=== PATIENT | female | born 1945 | race Caucasian/White ===

== ENCOUNTER 2017-04-07 06:28 | Day surgery (SDC) | payer MEDICARE, OTHER ==
[2017-04-07] MEDS ORDERED: Lidocaine 1% with EPINEPHrine 1:100,000 50 ML MDV ONE (06:44)
[2017-04-07] MEDS ORDERED: Bacitracin Oint 1 GM U/D Packet ONE (06:44)
[2017-04-07] MEDS ORDERED: Sodium Chloride 0.9% 1,000 ML IV SCH (07:00)
[2017-04-07] MEDS ORDERED: fentaNYL 100 MCG/2 ML SDV ONE (07:20)
[2017-04-07] MEDS ORDERED: Midazolam 1 MG/ML 2 ML SDV ONE (07:20)
[2017-04-07] MEDS ORDERED: Propofol 200 MG/20 ML SDV ONE (07:20)
[2017-04-07] MEDS ORDERED: Lidocaine 0.5% 50 ML SDV ONE (07:21)
[2017-04-07] MEDS ORDERED: ceFAZolin 2 GM in Premix Bag 1 BAG IV ONE ×2 (07:30)
[2017-04-07] MEDS ORDERED: Ketorolac 60 MG/2 ML SDV ONE (08:29)
[2017-04-07] MEDS ORDERED: fentaNYL 100 MCG/2 ML SDV IVPUSH PRN (09:21)
[2017-04-07] MEDS ORDERED: Acetaminophen/HYDROcodone 325-5 MG Tab PO ONE (10:40)
--- NOTE | 2017-04-08 08:18 | OR ---
DATE OF PROCEDURE: 04/07/2017 PROCEDURE: Carpal tunnel release, right. COMPLICATIONS: None. 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 ANESTHESIA: [place] block. PREOPERATIVE DIAGNOSIS: Carpal tunnel syndrome. POSTOPERATIVE DIAGNOSIS: Carpal tunnel syndrome. RISKS: Risks, benefits, alternatives, and limitations including, but not limited to infection, bleeding, and injury to nerves, such as the median nerve or other cutaneous nerves, were all explained to the patient, and she wished to proceed. PROCEDURE IN DETAIL: The patient was placed in a supine position. The right hand and arm were prepped and draped. Lead Hand was used to facilitate positioning, which included a very slightly flexed position to decrease median nerve injury potential. An incision was made approximately 1.5 cm, which would be slightly enlarged during this procedure, due to thickness of the carpal tunnel. This was slightly ulnar to the midline and more aligned with the ring finger. This was carried down with electrocautery through the subcutaneous tissues. [place] was used to bluntly dissect. Very small cutaneous branches were encountered, as is typical. These were preserved and not dissected. Once the flexor retinaculum was encountered, a 15 blade was used to create a very small defect in this, allowing this to be transected. The majority of the transection was performed with blunt dissection with spreading technique in combination with scissors. Self-retaining and radiology physician assistant-driven retraction were also used to facilitate optimal visualization, and at no time was the scissors "slid" blindly. In addition, a groove director was also used to protect the median nerve, which was identified away from the incision area. Once dissection on the distal aspect was complete, the surgeon's position was moved to the end of the table, allowing proximal visualization at a better angle of attack. The flexor retinaculum was checked proximally and distally for complete transection, which was noted. The median nerve was then identified again and inspected without abnormality. Subcutaneous tissues were gently approximated with 3-0 Vicryl, and the skin was closed with 4-0 Prolene. Fluffs and bulky type dressings were applied. The patient tolerated the procedure well. Ricco Dover MD /[id number]
== END 2017-04-07 11:05 | disposition home or self-care (01) ==
LOC: JP.SDS 06:28 → MERGE 10:00 → JP.SDS 11:05
PROVIDERS: ATTEND Surgery
DX: G56.01 Carpal tunnel syndrome, right upper limb (principal); J45.909 Unspecified asthma, uncomplicated; Z87.891 Personal history of nicotine dependence; Z98.84 Bariatric surgery status; Z79.899 Other long term (current) drug therapy; Z91.040 Latex allergy status; Z88.8 Allergy status to other drugs, medicaments and biological substances
CPT/HCPCS: 64721; A9270; J0690; J1885; J2250; J2704; J3010; J7040

== ENCOUNTER 2017-05-14 07:13 | Day surgery (SDC) | payer MEDICARE, OTHER ==
[~2017-05-14 07:13] MED LIST: Bacitracin Oint 1 GM U/D Packet ONE; Lidocaine 1% with EPINEPHrine 1:100,000 50 ML MDV ONE
[2017-05-14] MEDS ORDERED: fentaNYL 100 MCG/2 ML SDV ONE (07:18)
[2017-05-14] MEDS ORDERED: Lidocaine 0.5% 50 ML SDV ONE (07:18)
[2017-05-14] MEDS ORDERED: Midazolam 1 MG/ML 2 ML SDV ONE (07:18)
[2017-05-14] MEDS ORDERED: Propofol 200 MG/20 ML SDV ONE ×2 (07:18→09:24)
[2017-05-14] MEDS ORDERED: Sodium Chloride 0.9% 1,000 ML IV SCH (08:00)
[2017-05-14] MEDS ORDERED: ceFAZolin 2 GM in Premix Bag 1 BAG IV ONE (08:30)
[2017-05-14] MEDS ORDERED: Lidocaine 1% with EPINEPHrine 1:100,000 50 ML MDV ONE (08:35)
[2017-05-14] MEDS ORDERED: Ketorolac 60 MG/2 ML SDV ONE (09:26)
[2017-05-14] MEDS ORDERED: hydrOXYzine HCl 100 MG/2 ML SDV IM ONE (09:57)
[2017-05-14] MEDS ORDERED: Acetaminophen/HYDROcodone 325-10 MG Tab PO PRN (10:18)
--- NOTE | 2017-05-14 17:13 | OR ---
DATE OF PROCEDURE: 05/14/2017 PROCEDURE PERFORMED: Left carpal tunnel release. FINDINGS: Significant and extensive scarring in the carpal tunnel. COMPLICATIONS: None. DIGESTER HAND: None. ANESTHETIC: MAC/[place] block. RISKS: Risks, benefits, alternatives, limitations including, but not limited to infection, bleeding, injury to nerves and blood vessel structures that could result in permanent disability were explained to the patient and they wished to proceed. PROCEDURE IN DETAIL: The patient was placed in supine position. After [place] block, the left arm and hand were prepped and draped. A 15 blade was used in conjunction with gentle electrocautery to dissect down to the carpal tunnel itself. A blunt dissection was then performed of the carpal tunnel. At no point was a sharp object or scissors blindly advanced into the carpal tunnel. Over the next 20 minutes, this dissection was performed. This was noted to be significantly scarred and that the incision itself was marked to facilitate maximum visualization. Once the carpal tunnels were lysed proximally and distally, this was evaluated for complete transection, which was noted. The nerve was identified along with the ligaments, tendons, and they were not interactive with it in any way. No evidence of bleeding or abnormal injury. Subcutaneous tissues were closed with 3-0 Vicryl and 4-0 Prolene. The patient tolerated the procedure well. Ricco Dover MD /[id number]
== END 2017-05-14 11:05 | disposition home or self-care (01) ==
LOC: JP.SDS 07:13
PROVIDERS: ATTEND Surgery
DX: G56.02 Carpal tunnel syndrome, left upper limb (principal); J45.909 Unspecified asthma, uncomplicated; F17.200 Nicotine dependence, unspecified, uncomplicated
CPT/HCPCS: 64721; A9270; J0690; J1885; J2250; J2704; J3010; J3410; J7040

== ENCOUNTER 2021-04-23 08:11 | Day surgery (SDC) | payer MEDICARE, OTHER ==
[~2021-04-23 08:11] MED LIST changes: -Bacitracin Oint 1 GM U/D Packet ONE; +Lactated Ringers 1,000 ML IV ONE; -Lidocaine 1% with EPINEPHrine 1:100,000 50 ML MDV ONE; +MVI, Adult with Vitamin K 10 ML, Thiamine 200 MG, Chromium/Copper/Mang/Selen/Zn 1 ML in... IV ONE; +Propofol 200 MG/20 ML SDV ONE; +fentaNYL 100 MCG/2 ML SDV ONE
[2021-04-23] MEDS ORDERED: Cupric Chloride 2 MG in Sodium Chloride 0.9% 250 ML IV ONE (08:45)
[2021-04-23] MEDS ORDERED: Lactated Ringers 1,000 ML IV ONE (09:00)
[2021-04-23] MEDS ORDERED: Cyanocobalamin (Vitamin B12) 1,000 MCG/ML SDV IM ONE (09:30)
[2021-04-23] MEDS ORDERED: Glycopyrrolate 0.2 MG/ML 2 ML SDV IVPUSH ONE (09:30)
[2021-04-23] MEDS ORDERED: MVI, Adult with Vitamin K 10 ML, Thiamine 200 MG, Chromium/Copper/Mang/Selen/Zn 1 ML in... IV ONE ×4 (10:30)
== END 2021-04-23 14:20 | disposition home or self-care (01) ==
LOC: JP.SDS 08:11
PROVIDERS: ATTEND Surgery
DX: R11.10 Vomiting, unspecified (principal); R10.9 Unspecified abdominal pain; F17.200 Nicotine dependence, unspecified, uncomplicated; J45.909 Unspecified asthma, uncomplicated; Z98.84 Bariatric surgery status
CPT/HCPCS: 88305; J2704; J3010; J3411; J3420; J3490; J7050; J7120

== ENCOUNTER → 2022-07-30 | Day surgery (SDC) | payer MEDICARE, OTHER ==
[~2022-07-30] MED LIST changes: +Dextrose 5%-Lactated Ringers 1,000 ML IV SCH; +Glycopyrrolate 0.2 MG/ML 2 ML SDV IVPUSH ONE; -Lactated Ringers 1,000 ML IV ONE; -MVI, Adult with Vitamin K 10 ML, Thiamine 200 MG, Chromium/Copper/Mang/Selen/Zn 1 ML in... IV ONE; +Pantoprazole 40 MG Vial IVPUSH ONE; -fentaNYL 100 MCG/2 ML SDV ONE; +fentaNYL 50 MCG/ML SDV ONE
== END ==
LOC: JP.SDS 10:25
PROVIDERS: ATTEND Surgery
DX: K21.00 Gastro-esophageal reflux disease with esophagitis, without bleeding (principal); K22.10 Ulcer of esophagus without bleeding; K29.70 Gastritis, unspecified, without bleeding; G47.33 Obstructive sleep apnea (adult) (pediatric); J45.909 Unspecified asthma, uncomplicated; K21.9 Gastro-esophageal reflux disease without esophagitis; K76.9 Liver disease, unspecified; Z98.84 Bariatric surgery status; Z88.4 Allergy status to anesthetic agent; Z91.040 Latex allergy status; Z91.048 Other nonmedicinal substance allergy status
CPT/HCPCS: 87081; C9113; J2704; J3010; J3490; J7121